=== PATIENT | female | born 1960 | race Caucasian/White ===

== ENCOUNTER 2017-07-17 11:27 | Emergency (ER) | payer MEDICAID ==
[~2017-07-17] VITALS: Ht 165.1 cm; Wt 85.0 kg
[2017-07-17 12:07] VITALS: BP 152/95
[2017-07-17] MEDS ORDERED: KETOROLAC 60MG/2ML VIAL IM ONE (14:45)
== END 2017-07-17 16:00 | disposition home or self-care (01) ==
LOC: ER 11:50
DX: S20.219A Contusion of unspecified front wall of thorax, initial encounter (principal); I10 Essential (primary) hypertension; M54.9 Dorsalgia, unspecified; M79.643 Pain in unspecified hand; H92.09 Otalgia, unspecified ear; R07.0 Pain in throat; V49.88XA Car occupant (driver) (passenger) injured in other specified transport accidents, initial encounter; Y93.89 Activity, other specified; Y92.89 Other specified places as the place of occurrence of the external cause; Y99.8 Other external cause status
CPT/HCPCS: 96372; 99283; J1885